=== PATIENT | female | born 1970 | race Caucasian/White ===

== ENCOUNTER 2018-01-03 10:44 | Day surgery (SDC) | payer OTHER ==
[~2018-01-03 10:44] MED LIST: CEFAZOLIN 1 GM INJ
[2018-01-03] MEDS ORDERED: MIDAZOLAM 1 MG/ML 2 ML INJ (12:44)
[2018-01-03] MEDS ORDERED: PROPOFOL 20 ML (12:44)
[2018-01-03] MEDS ORDERED: NEOSTIGMINE 3 MG/3 ML SYRINGE (12:44)
[2018-01-03] MEDS ORDERED: GLYCOPYRROLATE 0.4 MG INJ (12:44)
[2018-01-03] MEDS ORDERED: LIDOCAINE 2% (SDV) 5 ML INJ (12:44)
[2018-01-03] MEDS ORDERED: ROCURONIUM 50 MG INJ (12:44)
[2018-01-03] MEDS ORDERED: FENTAnyl 50 MCG/ML VIAL (12:44)
[2018-01-03] MEDS ORDERED: ONDANSETRON 4 MG INJ ×2 (12:45→13:24)
[2018-01-03] MEDS ORDERED: DEXAMETHASONE 4 MG/ML 1 ML INJ (12:45)
[2018-01-03] MEDS ORDERED: SUCCINYLCHOLINE CHLORIDE 100 MG/5 ML SYG IV (13:02)
[2018-01-03] MEDS: POVIDONE IODINE 10% 28.4 GM OINT (13:10)
[2018-01-03] MEDS: POLYMYXIN/BACITRACIN 1L IRRIG (13:11)
[2018-01-03] MEDS: BUPIVACAINE 0.5% (SDV) 30 ML INJ (13:30)
[2018-01-03] MEDS ORDERED: FENTAnyl 50 MCG/ML VIAL IV (14:00)
[2018-01-03] MEDS ORDERED: ONDANSETRON 4 MG INJ IV (14:00)
[2018-01-03] MEDS ORDERED: OXYCODONE/ACETAMINOPHEN (5/325) TAB PO ×2 (14:00)
[2018-01-03] MEDS ORDERED: MEPERIDINE 25 MG INJ IV (14:00)
[2018-01-03] MEDS ORDERED: morphine (1 MG/ML) 10ML SYRINGE IV (14:00)
[2018-01-03] MEDS ORDERED: HYDROmorphONE 1 MG/5 ML IV SYRINGE IV ×2 (14:00→14:03)
[2018-01-03] MEDS: HYDROmorphONE 1 MG/5 ML IV SYRINGE IV (14:23)
== END 2018-01-03 15:40 | disposition home or self-care (01) ==
LOC: SDS 10:44
DX: M20.12 Hallux valgus (acquired), left foot (principal); R73.03 Prediabetes
CPT/HCPCS: 28299; 82962; 84703; 88304

== ENCOUNTER 2019-01-18 21:38 | Emergency (ER) | payer OTHER ==
[2019-01-18 22:56] LABS: ADD MAN DIFF? NO
[2019-01-18 23:03] LABS: WHITE BLOOD COUNT 5.6 10^3/ul (4.8-10.8)
[2019-01-18 23:03] LABS: BASOPHILS % 0.7 % (0.0-2.0); EOSINOPHILS # 0.2 10^3/ul (0.0-0.5); EOSINOPHILS % 3.4 % (0.0-7.0); HEMATOCRIT 36.8 % (37.0-47.0); HEMOGLOBIN 12.5 g/dl (12.0-16.0); LYMPHOCYTES % 35.3 % (15.0-51.0); MEAN CORPUSCULAR VOLUME 85.4 fl (82.0-101.0); MEAN PLATELET VOLUME 10.4 fl (7.4-10.4); MONOCYTE # 0.6 10^3/ul (0.3-0.9); MONOCYTES % 11.3 % (0.0-11.0); NEUTROPHIL # 2.7 10^3/ul (1.6-7.5); NEUTROPHILS % 49.1 % (39.0-77.0); PLATELET COUNT 245 10^3/UL (140-415); RED BLOOD COUNT 4.31 10^6/ul (4.20-5.40)
[2019-01-18 23:09] LABS: ADD UMIC NO; UR ASCORBIC ACID NEGATIVE (NEGATIVE); UR BILIRUBIN (Dip) NEGATIVE (NEGATIVE); UR BLOOD (Dip) NEGATIVE (NEGATIVE); UR CLARITY CLEAR (CLEAR); UR COLOR YELLOW (YELLOW); UR GLUCOSE (Dip) NEGATIVE (NEGATIVE); UR KETONES (Dip) NEGATIVE (NEGATIVE); UR LEUKOCYTE ESTERASE (Dip) NEGATIVE Leu/ul (NEGATIVE); UR NITRITE (Dip) NEGATIVE (NEGATIVE); UR SPECIFIC GRAVITY (Dip) 1.016 (1.003-1.030); UR TOTAL PROTEIN (Dip) NEGATIVE (NEGATIVE); UR UROBILINOGEN (Dip) NEGATIVE (NEGATIVE)
[2019-01-18 23:23] LABS: ALANINE AMINOTRANSFERASE 20 IU/L (13-69); ALBUMIN 4.1 g/dl (3.3-4.9); ALBUMIN/GLOBULIN RATIO 1.32; ALKALINE PHOSPHATASE 85 IU/L (42-121); ANION GAP 6 (5-13); ASPARTATE AMINO TRANSFERASE 24 IU/L (15-46); BILIRUBIN,INDIRECT 0.4 mg/dl (0-1.1); BILIRUBIN,TOTAL 0.4 mg/dl (0.2-1.3); BLOOD UREA NITROGEN 18 mg/dl (7-20); CARBON DIOXIDE 28 mmol/L (21-31); CHLORIDE 106 mmol/L (97-110); CREATININE 0.53 mg/dl (0.44-1.00); Estimated GFR > 60 mL/min (>60); GLUCOSE 149 mg/dl (70-220); LIPASE 64 U/L (23-300); POTASSIUM 3.7 mmol/L (3.5-5.1); SODIUM 140 mmol/L (135-144); TOTAL PROTEIN 7.2 g/dl (6.1-8.1)
[2019-01-19] MEDS: KETOROLAC 15 MG INJ IV (00:27)
== END 2019-01-19 00:38 | disposition home or self-care (01) ==
LOC: E/R 01-19 00:38
DX: M54.5 Low back pain (principal); E11.9 Type 2 diabetes mellitus without complications
CPT/HCPCS: 80053; 81003; 81025; 82962; 83690; 85025; 96374; 99284-25